=== PATIENT | male | born 1955 | race Caucasian/White ===

== ENCOUNTER → 2016-09-24 | Outpatient (CLI) | payer BC ==
[~2016-09-24] MED LIST: ASPI-983 PO; ATOR20TA66 PO; CLOP75TA28 PO; FURO20TA4 PO; LISI-556 PO; METO-270 PO; PANT40SU PO; SPIR25TA3 PO
[2016-09-24 09:15] LABS: ALANINE AMINOTRANSFERASE 12 U/L (0-55); ALBUMIN 4.2 G/DL (3.2-4.5); ANION GAP 8 MMOL/L (5-14); ASPARTATE AMINO TRANSFERASE 15 U/L (5-34); BILIRUBIN,TOTAL 0.8 MG/DL (0.1-1.0); BLOOD UREA NITROGEN 24 MG/DL (7-18); BUN/CREATININE RATIO 22; CALCIUM 8.9 MG/DL (8.5-10.1); CARBON DIOXIDE 26 MMOL/L (21-32); CHLORIDE 106 MMOL/L (98-107); CHOLESTEROL 110 MG/DL (< 200); CREATININE SERUM 1.08 MG/DL (0.60-1.30); DIRECT LDL 61 MG/DL (1-129); GFR ESTIMATED > 60; GLUCOSE 91 MG/DL (70-105); POTASSIUM 4.4 MMOL/L (3.6-5.0); SODIUM 140 MMOL/L (135-145); TOTAL PROTEIN 6.8 G/DL (6.4-8.2); TRIGLYCERIDES 40 MG/DL (<150); VLDL CHOLESTEROL 8 MG/DL (5-40)
== END ==
LOC: LAB 08:38
PROVIDERS: ATTEND Nurse Practitioner Family
DX: I25.10 Atherosclerotic heart disease of native coronary artery without angina pectoris (principal); I25.5 Ischemic cardiomyopathy; E78.4 Other hyperlipidemia; Z72.0 Tobacco use
CPT/HCPCS: 36415; 80053; 80061

== ENCOUNTER → 2017-03-30 | Outpatient (CLI) | payer BC ==
[2017-03-30 08:18] LABS: ALANINE AMINOTRANSFERASE 12 U/L (0-55); ANION GAP 10 MMOL/L (5-14); ASPARTATE AMINO TRANSFERASE 16 U/L (5-34); BILIRUBIN,TOTAL 0.4 MG/DL (0.1-1.0); BLOOD UREA NITROGEN 25 MG/DL (7-18); BUN/CREATININE RATIO 26; CALCIUM 9.3 MG/DL (8.5-10.1); CARBON DIOXIDE 22 MMOL/L (21-32); CHLORIDE 105 MMOL/L (98-107); CHOLESTEROL 126 MG/DL (< 200); CREATININE SERUM 0.96 MG/DL (0.60-1.30); DIRECT LDL 70 MG/DL (1-129); GFR ESTIMATED > 60; GLUCOSE 102 MG/DL (70-105); POTASSIUM 3.9 MMOL/L (3.6-5.0); SODIUM 137 MMOL/L (135-145); TOTAL PROTEIN 6.8 GM/DL (6.4-8.2); TRIGLYCERIDES 87 MG/DL (<150); VLDL CHOLESTEROL 17 MG/DL (5-40)
== END ==
LOC: LAB 07:44
PROVIDERS: ATTEND Nurse Practitioner Family
DX: I25.10 Atherosclerotic heart disease of native coronary artery without angina pectoris (principal); E78.4 Other hyperlipidemia
CPT/HCPCS: 36415; 80053; 80061

== ENCOUNTER → 2017-03-31 | Outpatient (CLI) | payer BC | LOC: CARD 14:07 | PROVIDERS: ATTEND Nurse Practitioner Family | DX: I25.5 Ischemic cardiomyopathy (principal); I25.10 Atherosclerotic heart disease of native coronary artery without angina pectoris; I65.23 Occlusion and stenosis of bilateral carotid arteries; E78.4 Other hyperlipidemia | CPT/HCPCS: 93306 ==

== ENCOUNTER → 2021-10-27 | Outpatient (CLI) | payer BC ==
[~2021-10-27] MED LIST changes: +ASPI-1238 PO; -ASPI-983 PO; -LISI-556 PO; +LISI5TAB20 PO; -METO-270 PO; +MTP25TSR PO; -SPIR25TA3 PO; +SPIR25TA5 PO
== END ==
LOC: CARD 13:37
PROVIDERS: ATTEND Internal Medicine Cardiovascular Disease
DX: I51.7 Cardiomegaly (principal); I34.0 Nonrheumatic mitral (valve) insufficiency; I50.23 Acute on chronic systolic (congestive) heart failure
CPT/HCPCS: 93306

== ENCOUNTER 2021-11-15 14:58 | Emergency (ER) | payer BC ==
[~2021-11-15] VITALS: Ht 170.2 cm; Wt 59.8 kg
--- NOTE | 2021-11-15 15:52 | ED General ---
General Chief Complaint: Dizziness/Syncope Stated Complaint: NAUSEA, DIZZINESS Nursing Triage Note: PT BROUGHT IN BY [facility] FROM HOME WITH COMPLAINT OF DIZZINESS, WEAKNESS, AND NAUSEA THAT STARTED AROUND 1330 WHILE PT WAS LAYING IN BED. PT HAS AN EXTERNAL DEFIBULATOR PLACED BY DR ADLER. Source of Information: Patient Exam Limitations: No Limitations History of Present Illness Date Seen by Provider: Nov 15, 2021 Time Seen by Provider: 15:45 Initial Comments Patient is a 66-year-old male who presents to the emergency department today with a chief complaint of feeling generally weak a little dizzy and having dry heaves onset about 130 while he was lying in bed at home. He denies any recent unusual food ingestions, no new medications. No fevers or chills. No URI symptoms. No chest pain or shortness of breath. He does not have abdominal pain associated with the nausea and vomiting. He does not have any history of black or bloody stools no urinary complaints. No sick contacts. He has not had any recent travel. He can think of nothing that might have brought on the nausea and vomiting. He has no headache. He was given 4 mg of oral Zofran in the ambulance prior to arrival. He feels like this has calm down his nausea. He recently had an external vest defibrillator placed by Dr. Adler for a cardiomyopathy. All other review of systems reviewed and negative except as stated. Timing/Duration: 1-3 Hours Severity: Severe Associated Systoms: Malaise, Nausea/Vomiting, Weakness, Other (dizziness) Allergies and Home Medications Allergies Coded Allergies: No Known Drug Allergies (Unverified , 08/05/15) Patient Home Medication List Home Medication List Reviewed: Yes Aspirin (Aspirin EC) 81 Mg Tablet.dr 81 MG PO DAILY Prescribed by: JESSICA RODRIGUEZ on 08/08/15836 Atorvastatin Calcium (Atorvastatin Calcium) 20 Mg Tablet, 20 MG PO HS Prescribed by: JESSICA RODRIGUEZ on 08/08/15836 Clopidogrel Bisulfate (Clopidogrel) 75 Mg Tablet, 75 MG PO DAILY Prescribed by: JESSICA RODRIGUEZ on 08/08/15836 Furosemide (Furosemide) 20 Mg Tablet, 20 MG PO DAILY Prescribed by: JESSICA RODRIGUEZ on 08/08/15836 Lisinopril (Lisinopril) 5 Mg Tablet, 5 MG PO DAILY Prescribed by: JESSICA RODRIGUEZ on 08/08/15836 Meclizine HCl (Meclizine HCl) 25 Mg Tablet, 25 MG PO Q6H PRN for dizziness Prescribed by: BRIGID FERRARI on 11/15/211743 Metoprolol Succinate (Metoprolol Succinate) 25 Mg Tab.er.24h, 12.5 MG PO DAILY Prescribed by: JESSICA RODRIGUEZ on 08/08/15836 Ondansetron (Ondansetron Odt) 4 Mg Tab.rapdis, 4 MG PO Q8H PRN for nausea Prescribed by: BRIGID FERRARI on 11/15/211743 Pantoprazole Sodium (Protonix) 40 Mg Granpkt.dr, 40 MG PO DAILY Prescribed by: JESSICA RODRIGUEZ on 08/08/15836 Spironolactone (Spironolactone) 25 Mg Tablet, 25 MG PO DAILY Prescribed by: JESSICA RODRIGUEZ on 08/08/15836 Review of Systems Review of Systems Constitutional: see HPI, malaise, weakness EENTM: no symptoms reported Respiratory: no symptoms reported Cardiovascular: no symptoms reported Gastrointestinal: nausea, vomiting (dry heaving) Genitourinary: no symptoms reported Musculoskeletal: no symptoms reported Skin: no symptoms reported Psychiatric/Neurological: No Symptoms Reported All Other Systems Reviewed Negative Unless Noted: Yes Past Qdhkszu-Bkbilf-Siuzwp Hx Patient Social History Tobacco Use?: Yes Tobacco type used: Cigarettes Smoking Status: Current Everyday Smoker Use of E-Cig and/or Vaping dev: No Substance use?: No Alcohol Use?: Yes Alcohol Frequency: Once in a while Immunizations Up To Date Tetanus Booster (TDap): More than 5yrs PED Vaccines UTD: No Influenza Vaccine Up-to-Date: No; Not Current First/Initial COVID19 Vaccinat: NO Second COVID19 Vaccination Todd: NO Third COVID19 Vaccination Date: NO Past Medical History Chronic Bronchitis Currently Using CPAP: No Currently Using BIPAP: No High Cholesterol, Hypotension Reproductive Disorders: No Sexually Transmitted Disease: No HIV/AIDS: No Arthritis Cataract Loss of Vision: Denies Hearing Impairment: Denies Psoriasis Adverse Reaction/Blood Tranf: No Family Medical History Cardiovascular disease 19 FATHER FH: cholecystectomy 19 MOTHER Myocardial infarction 19 FATHER Osteoporosis 19 MOTHER Physical Exam Vital Signs Vital Signs - First Documented 11/15/21 14:58 Pulse 76 Resp 20 B/P (MAP) 112/62 (79) Pulse Ox 90 O2 Delivery Room Air Capillary Refill : Less Than 3 Seconds Height, Weight, BMI Height: 5'7.50" Weight: 150lbs. 8.0oz. [id number]; 20.00 BMI Method:Stated General Appearance: No Apparent Distress, WD/WN Eyes: Bilateral Eye Normal Inspection, Bilateral Eye PERRL, Bilateral Eye EOMI HEENT: PERRL/EOMI Neck: Normal Inspection Respiratory: Lungs Clear, Normal Breath Sounds, No Accessory Muscle Use, No Respiratory Distress Cardiovascular: Regular Rate, Rhythm, Normal Peripheral Pulses Gastrointestinal: Non Tender, Soft, Abnormal Bowel Sounds (hypoactive) Extremity: Normal Capillary Refill, Normal Inspection, No Pedal Edema Neurologic/Psychiatric: Alert, Oriented x3, No Motor/Sensory Deficits, housekeeper head II- XII Norm as Tested, Depressed Affect (Flat) Skin: Normal Color, Warm/Dry Progress/Results/Core Measures Suspected Sepsis SIRS Temperature: Pulse: 76 Respiratory Rate: 20 Laboratory Tests 11/15/21 15:01: White Blood Count 8.6 Blood Pressure 112 /62 Mean: 79 Laboratory Tests 11/15/21 15:01: Creatinine 1.10, Platelet Count 274, Total Bilirubin 0.7 Results/Orders Lab Results Laboratory Tests Test 11/15/21 15:01 Range/Units White Blood Count 8.6 4.3-11.0 10^3/uL Red Blood Count 5.67 H 4.30-5.52 10^6/uL Hemoglobin 16.5 13.3-17.7 g/dL Hematocrit 48 40-54 % Mean Corpuscular Volume 85 80-99 fL Mean Corpuscular Hemoglobin 29 25-34 pg Mean Corpuscular Hemoglobin Concent 34 32-36 g/dL Red Cell Distribution Width 13.4 10.0-14.5 % Platelet Count 274 130-400 10^3/uL Mean Platelet Volume 8.9 L 9.0-12.2 fL Immature Granulocyte % (Auto) 1 % Neutrophils (%) (Auto) 70 42-75 % Lymphocytes (%) (Auto) 20 12-44 % Monocytes (%) (Auto) 7 0-12 % Eosinophils (%) (Auto) 1 0-10 % Basophils (%) (Auto) 1 0-10 % Neutrophils # (Auto) 6.0 1.8-7.8 10^3/uL Lymphocytes # (Auto) 1.7 1.0-4.0 10^3/uL Monocytes # (Auto) 0.6 0.0-1.0 10^3/uL Eosinophils # (Auto) 0.1 0.0-0.3 10^3/uL Basophils # (Auto) 0.1 0.0-0.1 10^3/uL Immature Granulocyte # (Auto) 0.1 0.0-0.1 10^3/uL Sodium Level 133 L 135-145 MMOL/L Potassium Level 3.7 3.6-5.0 MMOL/L Chloride Level 93 L 98-107 MMOL/L Carbon Dioxide Level 24 21-32 MMOL/L Anion Gap 16 H 5-14 MMOL/L Blood Urea Nitrogen 41 H 7-18 MG/DL Creatinine 1.10 0.60-1.30 MG/DL Estimat Glomerular Filtration Rate 74 BUN/Creatinine Ratio 37 Glucose Level 132 H 70-105 MG/DL Calcium Level 9.6 8.5-10.1 MG/DL Corrected Calcium 9.7 8.5-10.1 MG/DL Total Bilirubin 0.7 0.1-1.0 MG/DL Aspartate Amino Transf (AST/SGOT) 26 5-34 U/L Alanine Aminotransferase (ALT/SGPT) 25 0-55 U/L Alkaline Phosphatase 73 40-136 U/L Total Protein 7.3 6.4-8.2 GM/DL Albumin 3.9 3.2-4.5 GM/DL My Orders Orders - BRIGID FERRARI MD Ekg Tracing (11/15/21 15:04) Cbc With Automated Diff (11/15/21 15:33) Comprehensive Metabolic Panel (11/15/21 15:33) Meclizine Tablet (Antivert Tablet) (11/15/21 17:15) Diazepam Injection (Valium Injection) (11/15/21 17:10) Medications Given in ED Current Medications Medications Dose Ordered Sig/Jarrett Route Start Time Stop Time Status Last Admin Dose Admin Meclizine HCl 25 mg ONCE ONCE PO 11/15/21 17:15 11/15/21 17:16 DC 11/15/21 17:27 25 MG Vital Signs/I&O 11/15/21 14:58 Pulse 76 Resp 20 B/P (MAP) 112/62 (79) Pulse Ox 90 O2 Delivery Room Air Capillary Refill : Less Than 3 Seconds Blood Pressure Mean: 79 Progress Note #1: Time: 17:08 Progress Note Patient reevaluated he is resting comfortably no recurrence of nausea and vomiting or dry heaving. His labs are normal. He states that he still feels a little bit dizzy it is worse when he sits up. He has no sustained nystagmus horizontal or vertical. Movement is making his dizziness worse. He feels better laying flat. Otherwise neurologically he is normal, normal [id number], negative Romberg, normal strength and sensation. No headache. We will treat with a little Valium and meclizine. Give him another 20 minutes and see if he gets improvement and then send him home with meclizine and Zofran. Patient is comfortable with this plan of care, all questions are sought and answered. Progress Note #2: Time: 17:42 Progress Note Patient's symptoms are gone. He feels a little bit sleepy. I had him sit up and look around he has no ongoing dizziness. I sent meclizine and Zofran to his pharmacy. I advised both he and his to monitor him for increased or worsening symptoms especially fever, chest pain, palpitations and excessive vomiting. He verbalized understanding, he is comfortable with plan of care. All questions are sought and answered. Patient is stable for discharge. Progress Note #3: Time: 18:03 Progress Note Notified by SHEREE eRyes that as the patient got up and stated to get in the wheelchair he became dizzy again. He had to sit back down. He states his symptoms are about as bad as when he came in. I advised him that the symptoms may indeed persist for several days. His medication should help them. We will try a scopolamine patch and see if we can further calm down the symptoms of dizziness. He is agreeable ECG Initial ECG Impression Date: Nov 15, 2021 Initial ECG Impression Time: 15:16 Initial ECG Rate: 81 Initial ECG Rhythm: Normal Sinus Initial ECG Intervals TN interval 202 equals first-degree AV block QRS 138 QTc 459 Comment Patient has PVCs noted, deeply inverted and slightly depressed ST segments in lead V5 and V6. LVH is noted Departure Impression Primary Impression: Dizziness Disposition: 01 HOME, SELF-CARE Condition: Improved Departure-Patient Inst. Decision time for Depature: 17:42 Referrals: [facility] NO,LOCAL PHYSICIAN (PCP) Primary Care Physician Patient Instructions: Dizziness, Adult ED Add. Discharge Instructions: Drink fluids to stay well-hydrated. Use the meclizine 1 tablet every 6 hours as needed for dizziness. Take the Zofran 1 every 8 hours as needed for nausea. If you develop a severe headache, double vision or blurry vision, excessive nausea and vomiting, chest pain or shortness of breath please come back to the emergency department for reevaluation. Please follow-up with [facility] this week. Scripts Ondansetron (Ondansetron Odt) 4 Mg Tab.rapdis 4 MG PO Q8H PRN for nausea, #20 TAB Prov: BRIGID FERRARI MD 11/15/21 Meclizine HCl (Meclizine HCl) 25 Mg Tablet 25 MG PO Q6H PRN for dizziness, #20 TAB Prov: BRIGID FERRARI MD 11/15/21 Copy Copies To 1: BLANE ANN KATHRYN M MD Nov 15, 2021 15:52
[2021-11-15 15:54] LABS: BASOPHILS # (AUTO) 0.1 10^3/uL (0.0-0.1); BASOPHILS % (AUTO) 1 % (0-10); EOSINOPHILS # (AUTO) 0.1 10^3/uL (0.0-0.3); EOSINOPHILS % (AUTO) 1 % (0-10); HEMATOCRIT 48 % (40-54); HEMOGLOBIN 16.5 g/dL (13.3-17.7); LYMPHOCYTES # (AUTO) 1.7 10^3/uL (1.0-4.0); LYMPHOCYTES % (AUTO) 20 % (12-44); MEAN CORPUSCULAR HEMOGLOBIN 29 pg (25-34); MEAN CORPUSCULAR HGB CONC 34 g/dL (32-36); MEAN CORPUSCULAR VOLUME 85 fL (80-99); MEAN PLATELET VOLUME 8.9 fL (9.0-12.2); MONOCYTES # (AUTO) 0.6 10^3/uL (0.0-1.0); MONOCYTES % (AUTO) 7 % (0-12); NEUTROPHILS % (AUTO) 70 % (42-75); PLATELET COUNT 274 10^3/uL (130-400); WHITE BLOOD COUNT 8.6 10^3/uL (4.3-11.0)
[2021-11-15 15:58] LABS: ALBUMIN 3.9 GM/DL (3.2-4.5); POTASSIUM 3.7 MMOL/L (3.6-5.0)
[2021-11-15 16:00] LABS: CALCIUM 9.6 MG/DL (8.5-10.1)
[2021-11-15 16:01] LABS: TOTAL PROTEIN 7.3 GM/DL (6.4-8.2)
[2021-11-15 16:02] LABS: BILIRUBIN,TOTAL 0.7 MG/DL (0.1-1.0)
[2021-11-15 16:04] LABS: CREATININE SERUM 1.1 MG/DL (0.60-1.30)
[2021-11-15] MEDS ORDERED: DIAZEPAM INJ 10 MG/2 ML (VALIUM) SYR IVP STA (17:10)
[2021-11-15] MEDS ORDERED: MECLIZINE 25 MG (ANTIVERT) TAB PO ONE (17:15)
[2021-11-15] MEDS ORDERED: MECL-149 PO (17:44)
[2021-11-15] MEDS ORDERED: ONDA4TAB11 PO (17:44)
[2021-11-15] MEDS ORDERED: SCOPOLAMINE 1.5 MG (TRANSDERM-SCOP) PATCH TD ONE (18:15)
[2021-11-15 18:55] VITALS: BP 106/62
== END 2021-11-15 18:55 | disposition home or self-care (01) ==
LOC: EDUNIT# 14:58 → ER 14:59
DX: R42 Dizziness and giddiness (principal); I50.1 Left ventricular failure, unspecified; F17.210 Nicotine dependence, cigarettes, uncomplicated; Z28.310 Unvaccinated for COVID-19; Z95.810 Presence of automatic (implantable) cardiac defibrillator
CPT/HCPCS: 36415; 80053; 85025; 93005

== ENCOUNTER → 2021-12-07 | Outpatient (CLI) | payer BC ==
[~2021-12-07] MED LIST changes: +MECL-149 PO; +ONDA4TAB11 PO
[2021-12-07 09:30] LABS: CALCIUM 9.7 MG/DL (8.5-10.1); CREATININE SERUM 1.09 MG/DL (0.60-1.30); MAGNESIUM 1.8 MG/DL (1.6-2.4); POTASSIUM 3.4 MMOL/L (3.6-5.0)
== END ==
LOC: LAB 08:46
PROVIDERS: ATTEND Internal Medicine Cardiovascular Disease
DX: I25.10 Atherosclerotic heart disease of native coronary artery without angina pectoris (principal); I50.23 Acute on chronic systolic (congestive) heart failure; Z72.0 Tobacco use
CPT/HCPCS: 36415; 80048; 83735

== ENCOUNTER → 2022-01-28 | Outpatient (CLI) | payer BC | LOC: CARD 13:00 | PROVIDERS: ATTEND Nurse Practitioner Family | DX: I25.5 Ischemic cardiomyopathy (principal) | CPT/HCPCS: 93306 ==

== ENCOUNTER 2022-02-09 09:00 | Day surgery (SDC) | payer BC ==
[~2022-02-09] VITALS: Ht 180.3 cm; Wt 62.6 kg
[2022-02-09] VITALS (15 sets, daily range): BP systolic 88–113; BP diastolic 46–69
[2022-02-09] MEDS: NS IV 1000 ML 1,000 ML IV SCH ×3 (07:25→15:05)
[2022-02-09 07:48] LABS: HEMATOCRIT 39 % (40-54); HEMOGLOBIN 13.4 g/dL (13.3-17.7); MEAN CORPUSCULAR HEMOGLOBIN 30 pg (25-34); MEAN CORPUSCULAR HGB CONC 34 g/dL (32-36); MEAN CORPUSCULAR VOLUME 87 fL (80-99); MEAN PLATELET VOLUME 8.5 fL (9.0-12.2); PLATELET COUNT 262 10^3/uL (130-400)
[2022-02-09 07:58] LABS: PROTHROMBIN TIME PATIENT 13.9 SEC (12.2-14.7)
[2022-02-09 08:12] LABS: ALBUMIN 4.2 GM/DL (3.2-4.5); BILIRUBIN,TOTAL 1.1 MG/DL (0.1-1.0); CALCIUM 9.6 MG/DL (8.5-10.1); CREATININE SERUM 1.31 MG/DL (0.60-1.30); POTASSIUM 4.1 MMOL/L (3.6-5.0); TOTAL PROTEIN 7.3 GM/DL (6.4-8.2)
[~2022-02-09 09:00] MED LIST changes: +CARV3.122 PO; +FURO80TA3 PO; +HEParin (CATH LAB) 2,000 ML IV ONE; +LIDOCAINE 1% INJ 20 ML VIAL ONE; +MIDAZOLAM 5 MG/5 ML (VERSED) VIAL ONE; +NS IV 1000 ML 1,000 ML ONE; +POTA-51 PO; +SPIR25TA PO; +fentaNYL INJ 100 MCG/2 ML AMP ONE
[2022-02-09] MEDS ORDERED: HEParin 1000 UNIT/ML (10ML VIAL) FOR BOLUS ONE (09:02)
[2022-02-09] MEDS ORDERED: NITRO DRIP 25000 MCG/D5W 250 ML IV ONE (09:04)
[2022-02-09] MEDS ORDERED: EPTIFIBATIDE BOLUS 20 ML IV ONE (09:04)
[2022-02-09] MEDS ORDERED: ASPIRIN 81 MG CHEW (CHILDREN'S ASA) ONE (10:03)
[2022-02-09] MEDS ORDERED: CLOPIDOGREL 300 MG (PLAVIX) TABLET PO ONE (10:03)
--- NOTE | 2022-02-09 11:28 | Cardiac Procedure Note-CS/ASA ---
Pre-Procedure Note Pre-Op Procedure Note Date of Available H&P: Feb 09, 2022 Date H&P Reviewed: Feb 09, 2022 Time H&P Reviewed: 09:00 History & Physical: H&P Reviewed, Patient Examed Conscious Sedation Pre-Proced ASA Score 4 For ASA 3 and 4: Consider anesthesia and medical clearance. Also, for patients with a history of failed moderate sedation consider anesthesia. Airway Lungs Heart ASA score ASA 1: a normal healthy patient ASA 2: a patient with a mild systemic disease (mid diabetes, controlled hypertension, obesity ASA 3: a patient with a severe systemic disease that limits activity (angina, COPD, prior Myocardial infarction) ASA 4: a patient with an incapacitating disease that is a constant threat to life (CHF, renal failure) ASA 5: a moribund patient not expected to survive 24 hrs. (ruptured aneurysm) ASA 6: a declared brain- patient whose organs are being harvested. For emergent operations, add the letter E after the classification Mallampati Classification Grade 2 Sedation Plan Analgesia, Amnesia, Plan communicated to team members The patient is an appropriate candidate to undergo the planned procedure, sedation, and anesthesia. The patient immediately re-assessed prior to indication. BENI HUANG MD FACP [facility] Feb 09, 2022 11:28
--- NOTE | 2022-02-09 11:50 | CARDIAC CATHETERIZATION ---
DATE OF SERVICE: 02/09/2022 CARDIAC CATHETERIZATION AND CORONARY INTERVENTION REPORT The patient is a 66-year-old gentleman, who has severe cardiomyopathy. Ejection fraction has been less than 10%. Cardiac catheterization was recommended to evaluate for coronary artery disease as a cause of his cardiomyopathy. Informed consent was obtained for cardiac catheterization and possible ad hoc coronary intervention. DESCRIPTION OF PROCEDURE: He was brought to the cardiac catheterization laboratory in a fasting state. Right groin was prepared and draped in the usual sterile fashion. Lidocaine 1% was used for local anesthesia. Modified Seldinger technique was used to advance a 5-Salvadorean sheath in right femoral artery, 5-Salvadorean JL4 catheter for left angiography, 5-Salvadorean JR4 catheter was used for right coronary angiography, 5-Salvadorean pigtail catheter was used for left heart catheterization and left ventricular angiography. Subsequently, we carried out iFR measurement in the coronary vessels and those are described below. iFR MEASUREMENT IN THE FIRST OM OF THE LEFT CIRCUMFLEX: We exchanged the sheath over a wire for a 6-Salvadorean sheath. We used a Spencer Omniwire wire to cross the lesion and iFR was found to be 0.87 across a mid vessel lesion and its obtuse marginal. This indicated hemodynamic significance. Accordingly, we proceeded with stenting of this vessel. PERCUTANEOUS INTERVENTION TO THE FIRST OBTUSE MARGINAL BRANCH TO LEFT CIRCUMFLEX: The first obtuse marginal branch of the left circumflex has approximately 70% to 80% stenosis and iFR across that was 0.87. Accordingly, we stented distal vessel. We used InMobi iFR wire to advance Xience Skypoint 2.75 x 18 mm stent to the lesion and this was deployed at 20 atmospheres. Subsequent angiography revealed 0% residual stenosis and flow throughout the vessel is normal. IFR MEASUREMENT IN THE LEFT ANTERIOR DESCENDING: Following completion of the intervention to the first obtuse marginal branch. Left circumflex, we used the Spencer Omniwire to carry out iFR measurement in the left anterior descending, which was exhibiting multiple stenoses in the proximal and mid portion of up to approximately 70% to 80%. The wire was advanced across the lesion and the iFR across the combination of these lesions was 0.73. A pullback was performed, and it was noted that multiple lesions in the proximal and mid left anterior descending artery were hemodynamically significant. PERCUTANEOUS INTERVENTION TO THE LEFT ANTERIOR DESCENDING ARTERY We removed this wire and advanced a BMW wire using the same JL4 guide catheter. The wire was used to cross the lesion in the proximal and ostial left anterior descending and the tip was placed in the distal vessel. We stented the most distal lesion with Xience Skypoint 2.75 x 15 mm stent that was deployed at 20 atmospheres. The stent balloon was removed and we then advanced Xience Skypoint 3.0 x 33 mm stent to the proximal lesion of the left anterior descending. This was placed across all the lesions and it slightly overlaps the previously deployed 2.75 x 15 mm stent. The stent was deployed at 18 atmospheres. The stent balloon was then removed. The most proximal part of the stent was postdilated with a 3.5 x 15 mm balloon that was inflated to 18 atmospheres. This was because the most proximal part of the standard segment was slightly larger than the rest of the left anterior descending. Subsequent angiography revealed 0% residual stenosis. Flow throughout the vessel was normal. He tolerated the procedure well. Angioplasty equipment was removed. Angiography of the right femoral artery had been carried out through the sheath at the beginning of the procedure. At the end of the procedure, Mynx was used to achieve hemostasis. HEMODYNAMICS: Left ventricular end-diastolic pressure following coronary angiography was 12 mmHg. There is no significant pressure gradient on pullback across the aortic valve. Ascending aortic pressure was 96/42 with a mean of 61 mmHg. LEFT VENTRICULAR ANGIOGRAPHY: Left ventricular angiography showed severe global hypokinesis, left ventricle. Ejection fraction is 10% to 15%. CORONARY ANGIOGRAPHY: Coronary calcification is seen. Left main coronary artery is free of significant disease. Left anterior descending artery had multiple stenoses of up to approximately 80% in its proximal and mid portions. These were hemodynamically significant, has shown by a significantly impaired iFR. The mid left anterior descending artery was stented with Skypoint 2.75 x 15 mm stent. The proximal left anterior descending artery was stented with Skypoint 3.0 x 33 mm stent. The stents overlapped slightly. There is no significant residual stenosis following the stent deployment in the left anterior descending. The left circumflex artery appears to have a standard segment into the very distal portion. A large first obtuse marginal branch was exhibiting approximately 70% to 80% stenosis in its mid portion. This was hemodynamically significant, as exhibited by iFR. This lesion was stented with Xience Skypoint 2.75 x 18 mm stent with no significant residual stenosis. Flow throughout the vessel was normal. The right coronary artery is occluded in its proximal portion and is heavily collateralized from the left coronary system. CONCLUSIONS: 1. Multivessel coronary artery disease including hemodynamically significant stenoses of the proximal and mid left anterior descending that were stented with Xience 3.0 x 18 mm and Xience 2.75 x 15 mm stent. The first obtuse marginal branch of the left circumflex artery had a hemodynamically significant stenosis in its mid portion that was successfully stented with Xience Skypoint 2.75 x 18 mm stent. The right coronary artery is chronically occluded and is heavily collateralized from the left coronary system. 3. Left ventricular end-diastolic pressure within normal limits. 4. Severe impairment of global left ventricular systolic function with an ejection fraction of 10% to 15%. DISCUSSION AND RECOMMENDATIONS: Heart failure medicines are being continued. Dual antiplatelet therapy is being continued. LifeVest is in place. Risk factor modification has been reviewed. He is being hospitalized for observation after today's multiple coronary interventional procedures. Job ID: [id number] DocumentID: [id number] Dictated Date: 02/09/2022 10:29:03 Retail Loss Prevention Investigator Date: 02/09/2022 11:49:57 Dictated By: BENI HUANG MD, MA, FACP, FACC, MTDD
[2022-02-09] MEDS ORDERED: TEMAZEPAM 15 MG (RESTORIL) CAP PO PRN (15:00)
[2022-02-09] MEDS ORDERED: ACETAMINOPHEN 325 MG TABLET PO PRN (15:00)
[2022-02-09] MEDS ORDERED: PATIENT MAY USE OWN MEDS, ALL PO SCH (15:00)
[2022-02-09] MEDS: KCL 20 MEQ TAB (K-DUR) PO SCH (18:58)
[2022-02-09] MEDS ORDERED: NON-FORMULARY MEDICATION 1 EA EA (Potassium Chloride 20 MEQ) PO SCH (21:00)
[2022-02-10] VITALS: BP 108/52
[2022-02-10 04:00] VITALS: BP 106/48
[2022-02-10 05:52] LABS: BASOPHILS % (AUTO) 1 % (0-10); EOSINOPHILS # (AUTO) 0.1 10^3/uL (0.0-0.3); EOSINOPHILS % (AUTO) 2 % (0-10); HEMATOCRIT 34 % (40-54); HEMOGLOBIN 11.5 g/dL (13.3-17.7); LYMPHOCYTES # (AUTO) 1.7 10^3/uL (1.0-4.0); LYMPHOCYTES % (AUTO) 19 % (12-44); MEAN CORPUSCULAR HEMOGLOBIN 30 pg (25-34); MEAN CORPUSCULAR HGB CONC 34 g/dL (32-36); MEAN CORPUSCULAR VOLUME 88 fL (80-99); MEAN PLATELET VOLUME 8.5 fL (9.0-12.2); MONOCYTES # (AUTO) 0.9 10^3/uL (0.0-1.0); MONOCYTES % (AUTO) 10 % (0-12); NEUTROPHILS # (AUTO) 6.1 10^3/uL (1.8-7.8); NEUTROPHILS % (AUTO) 69 % (42-75); PLATELET COUNT 208 10^3/uL (130-400); WHITE BLOOD COUNT 8.9 10^3/uL (4.3-11.0)
[2022-02-10 06:07] LABS: POTASSIUM 4.4 MMOL/L (3.6-5.0)
[2022-02-10 06:08] LABS: CALCIUM 8.6 MG/DL (8.5-10.1)
[2022-02-10 06:13] LABS: CREATININE SERUM 0.99 MG/DL (0.60-1.30)
[2022-02-10] MEDS: NS IV 1000 ML 1,000 ML IV SCH (06:37)
[2022-02-10] MEDS ORDERED: FUROSEMIDE 40 MG (LASIX) TAB PO SCH (07:00)
--- NOTE | 2022-02-10 07:58 | Progress Note - Cardiology ---
Cardiology SOAP Progress Note Subjective: Sitting up in bed No c/o CP, palpitations. SOB at baseline No c/o right groin discomfort Objective: I&O/Vital Signs Weight (Pounds): 150 Weight (Ounces): 8.0 Weight (Calculated Kilograms): 68.900283 Side: right Groin site without hematoma: Yes Condition: DP/PT pulses palpable, extremity w/d/p Bruising: mild bruising Constitutional: AAO x 3, well-developed, well-nourished Respiratory: No accessory muscle use, No respiratory distress; chest expansion is symmetric, chest is bilaterally symmetric, other (prolonged exp phase) Cardiovascular: regular rate-rhythm; No JVD; S1 and S2 Gastrointestional: No tender; soft, round, audible bowel sounds Extremities: no lower extremity edema bilateral Neurologic/Psychiatric: grossly intact (moves all extremities) Skin: No rash on exposed areas, No ulcerations on exposed areas Results/Procedures: Labs Microbiology 02/09/22 MRSA Screen - Final, Complete MRSA not isolated A/P: Assessment: CAD - Card cath 08-06-15: 100% RCA, s/p Promus premier 2.25 x 12 to mid to distal LCX and PTCA of a subbranch of the ramus (08/06/15), LVEF 5-10% - Cardiac cath of 02-09-22 showed: Multivessel coronary artery disease including hemodynamically significant stenosis of the proximal and mid left anterior descending that were stented with Xience 3.0 x 18 mm and Xience 2.75 x 15 mm stent. The first obtuse marginal branch, left circumflex artery had a hemodynamically significant stenosis in its mid portion that was successfully stented with Xience Skypoint 2.75 x 18 mm stent. The right coronary artery is chronically occluded and is heavily collateralized from the left coronary system. Left ventricular end-diastolic pressure within normal limits. Severe impairment of global left ventricular systolic function with an ejection fraction of 10% to 15%. ICM - Life Vest in place Ac on chronic systolic CHF due to dilated, ischemic cm - Echo 11/14/15: LVEF 20%, mild to mod MR, diastolic dysfunction of LV. Echo of 03/31/17: LVEF 20-25%, grade 1 walden dysfunction - Echocardiogram of 10-27-21 showed LVEF 5-10%. LA is mod to severely dilated. Mild to mod MR. PASP 30-35 mmHg - Life Vest H/O COVID in Jul 2021 DM 2 Chronic tobacco use - less than 10 cigs /day H/o mild gynecomastia when taking spironolactone. Refuses spironolactone Carotid dz - Mild carotid art disease on u/s of Jan 2017 Abnormal ECG - ECG on 10/19/21: Sinus tach, nonspecific IVCD Plan: S/P cardiac cath with successful coronary intervention OK to discharge home Continue Plavix, ASA and statin Continue med tx for cardiomyopathy Continue Life Vest Out pt f/u in 2 weeks or sooner if needed JESSICA RODRIGUEZ Feb 10, 2022 07:58
[2022-02-10] MEDS ORDERED: ATOR40TA PO (07:59)
[2022-02-10] MEDS ORDERED: CLOP75TA28 PO (07:59)
[2022-02-10 08:00] VITALS: BP 98/36
--- NOTE | 2022-02-10 08:00 | Discharge Inst-Cardiology ---
Discharge Inst-Cardiac Discharge Medications New Medications: Atorvastatin Calcium (Lipitor) 40 Mg Tablet 40 MG PO HS, #90 TAB 3 Refills Clopidogrel Bisulfate (Clopidogrel) 75 Mg Tablet 75 MG PO DAILY, #90 TAB 3 Refills Continued Medications: Aspirin (Aspirin EC) 81 Mg Tablet.dr 81 MG PO DAILY, TAB Carvedilol (Carvedilol) 3.125 Mg Tablet 3.125 MG PO BID, TAB Furosemide (Furosemide) 80 Mg Tablet 80 MG PO DAILY, TAB Lisinopril (Lisinopril) 5 Mg Tablet 5 MG PO DAILY, TAB Potassium Chloride (Potassium Chloride) 20 Meq Tablet.er 20 MEQ PO BID, TAB Spironolactone (Aldactone) 25 Mg Tablet 25 MG PO DAILY, TAB New, Converted or Re-Newed RX: Transmitted to Pharmacy Patient Instructions Patient Instructions: Please schedule follow up appointment to see Dr. Adler in 2 weeks JESSICA RODRIGUEZ Feb 10, 2022 08:00
[2022-02-10] MEDS: KCL 20 MEQ TAB (K-DUR) PO SCH (08:57)
[2022-02-10] MEDS ORDERED: SPIRONOLACTONE 25 MG (ALDACTONE) TAB PO SCH (09:00)
[2022-02-10] MEDS ORDERED: ASPIRIN E.C. 81 MG (ECOTRIN) TAB PO SCH (09:00)
[2022-02-10] MEDS ORDERED: lisINopril 5 MG (PRINIVIL) TABLET PO SCH (09:00)
[2022-02-10] MEDS ORDERED: CLOPIDOGREL 75 MG (PLAVIX) TABLET PO SCH (09:00)
[2022-02-10] MEDS ORDERED: NON-FORMULARY MEDICATION 1 EA EA (Furosemide 80 MG) PO SCH (09:00)
--- NOTE | 2022-02-10 09:02 | Progress Note - Cardiology ---
Cardiology SOAP Progress Note Subjective: No cp or palp or syncope No focal weakness No n/v/d No groin or leg discomfort or discoloration Reports breast tenderness since on spironolactone Objective: I&O/Vital Signs 02/10/22 02/10/22 02/10/22 02/10/22 00:00 01:00 04:00 07:13 Pulse 65 70 59 59 Resp 15 13 B/P (MAP) 108/52 (70) 106/48 (67) Pulse Ox 88 96 O2 Delivery OxyMask OxyMask O2 Flow Rate 6.00 6.00 02/10/22 07:58 O2 Delivery OxyMask O2 Flow Rate 6.00 02/10/22 00:00 Intake Total 740 ml Output Total 750 ml Balance -10 ml Weight (Pounds): 150 Weight (Ounces): 8.0 Weight (Calculated Kilograms): 68.757533 Side: right Groin site without hematoma: Yes Condition: DP/PT pulses palpable, extremity w/d/p Bruising: mild bruising Constitutional: AAO x 3, well-developed, well-nourished Respiratory: No accessory muscle use, No respiratory distress; chest expansion is symmetric, chest is bilaterally symmetric, other (prolonged exp phase) Cardiovascular: regular rate-rhythm; No JVD; S1 and S2 Gastrointestional: No tender; soft, round, audible bowel sounds Extremities: no lower extremity edema bilateral Neurologic/Psychiatric: grossly intact (moves all extremities) Skin: No rash on exposed areas, No ulcerations on exposed areas Results/Procedures: Labs Laboratory Tests 02/10/22 05:10: White Blood Count 8.9, Red Blood Count 3.84L, Hemoglobin 11.5L, Hematocrit 34L, Mean Corpuscular Volume 88, Mean Corpuscular Hemoglobin 30, Mean Corpuscular Hemoglobin Concent 34, Red Cell Distribution Width 17.0H, Platelet Count 208, Mean Platelet Volume 8.5L, Immature Granulocyte % (Auto) 0, Neutrophils (%) (Auto) 69, Lymphocytes (%) (Auto) 19, Monocytes (%) (Auto) 10, Eosinophils (%) (Auto) 2, Basophils (%) (Auto) 1, Neutrophils # (Auto) 6.1, Lymphocytes # (Auto) 1.7, Monocytes # (Auto) 0.9, Eosinophils # (Auto) 0.1, Basophils # (Auto) 0.0, Immature Granulocyte # (Auto) 0.0, Sodium Level 139, Potassium Level 4.4, Chlori de Level 108H, Carbon Dioxide Level 21, Anion Gap 10, Blood Urea Nitrogen 20H, Creatinine 0.99, Estimat Glomerular Filtration Rate 85, BUN/Creatinine Ratio 20, Glucose Level 90, Calcium Level 8.6, Triglycerides Level 65, Cholesterol Level 151, LDL Cholesterol Direct 108, VLDL Cholesterol 13, HDL Cholesterol 33L Microbiology 02/09/22 MRSA Screen - Final, Complete MRSA not isolated Laboratory Tests 02/09/22 07:39 02/10/22 05:10 A/P: Assessment: CAD - Card cath 08-06-15: 100% RCA, s/p Promus premier 2.25 x 12 to mid to distal LCX and PTCA of a subbranch of the ramus (08/06/15), LVEF 5-10% - Cardiac cath of 02-09-22 showed: Multivessel coronary artery disease including hemodynamically significant stenosis of the proximal and mid left anterior descending that were stented with Xience 3.0 x 18 mm and Xience 2.75 x 15 mm stent. The first obtuse marginal branch, left circumflex artery had a hemodynamically significant stenosis in its mid portion that was successfully stented with Xience Skypoint 2.75 x 18 mm stent. The right coronary artery is chronically occluded and is heavily collateralized from the left coronary system. Left ventricular end-diastolic pressure within normal limits. Severe impairment of global left ventricular systolic function with an ejection fraction of 10% to 15%. ICM - Life Vest in place Ac on chronic systolic CHF due to dilated, ischemic cm - Echo 11/14/15: LVEF 20%, mild to mod MR, diastolic dysfunction of LV. Echo of 03/31/17: LVEF 20-25%, grade 1 walden dysfunction - Echocardiogram of 10-27-21 showed LVEF 5-10%. LA is mod to severely dilated. Mild to mod MR. PASP 30-35 mmHg - Life Vest H/O COVID in Jul 2021 DM 2 Chronic tobacco use - less than 10 cigs /day H/o mild gynecomastia when taking spironolactone. Refuses spironolactone Carotid dz - Mild carotid art disease on u/s of Jan 2017 Abnormal ECG - ECG on 10/19/21: Sinus tach, nonspecific IVCD Plan: S/P cardiac cath with successful coronary intervention. I explained to him the rationale and details of his interventional procedures of 02/09/22 OK to discharge home Continue Plavix, ASA and statin Continue med tx for cardiomyopathy except reduce spironolactone to qod (per patient request) Continue Life Vest Out pt f/u in 2 weeks or sooner if needed BENI HUANG MD FACP FAC CCDS Feb 10, 2022 09:02
[2022-02-10] MEDS ORDERED: SPIR25TA PO (09:40)
== END 2022-02-10 10:17 | disposition home or self-care (01) ==
LOC: CATH 09:00 → CSD 10:32 → CATH 02-10 10:17
PROVIDERS: ATTEND Internal Medicine Cardiovascular Disease
DX: I25.10 Atherosclerotic heart disease of native coronary artery without angina pectoris (principal); F17.210 Nicotine dependence, cigarettes, uncomplicated; Z86.16 Personal history of COVID-19; E11.9 Type 2 diabetes mellitus without complications; I50.23 Acute on chronic systolic (congestive) heart failure; I25.2 Old myocardial infarction; Z95.5 Presence of coronary angioplasty implant and graft; I42.0 Dilated cardiomyopathy; Z79.899 Other long term (current) drug therapy; Z79.82 Long term (current) use of aspirin; Z79.02 Long term (current) use of antithrombotics/antiplatelets
CPT/HCPCS: 80048; 80053; 80061 ×2; 85025; 85027; 85610; 85730; 87081; 93005; 93458; 93571; 93572; 94760; C1725; C1760; C1769 ×2; C1874 ×3; C1887; C1894 ×2; C9600; C9601; 36415

== ENCOUNTER → 2022-04-29 | Outpatient (CLI) | payer BC ==
[~2022-04-29] MED LIST changes: +ATOR40TA PO; -HEParin (CATH LAB) 2,000 ML IV ONE; -LIDOCAINE 1% INJ 20 ML VIAL ONE; -MIDAZOLAM 5 MG/5 ML (VERSED) VIAL ONE; -NS IV 1000 ML 1,000 ML ONE; -fentaNYL INJ 100 MCG/2 ML AMP ONE
== END ==
LOC: CARD 14:58
PROVIDERS: ATTEND Nurse Practitioner Family
DX: I34.0 Nonrheumatic mitral (valve) insufficiency (principal); I25.5 Ischemic cardiomyopathy; I51.7 Cardiomegaly
CPT/HCPCS: 93306

== ENCOUNTER → 2022-08-27 | Outpatient (CLI) | payer BC | LOC: CARD 15:00 | PROVIDERS: ATTEND Internal Medicine Cardiovascular Disease | DX: I51.7 Cardiomegaly (principal); I25.5 Ischemic cardiomyopathy | CPT/HCPCS: 93306 ==

== ENCOUNTER → 2022-12-06 | Outpatient (CLI) | payer BC ==
[~2022-12-06] MED LIST changes: +POTA-330 PO; -POTA-51 PO
== END ==
LOC: CARD 08:52
PROVIDERS: ATTEND Internal Medicine Cardiovascular Disease
DX: I25.5 Ischemic cardiomyopathy (principal)
CPT/HCPCS: 93306